=== PATIENT | female | born 1945 | race Caucasian/White ===

== ENCOUNTER 2025-01-31 13:31 | Outpatient (CLI) | payer MEDICARE, SELFPAY ==
--- NOTE | 2025-01-31 14:51 | ECG_ITS ---
Test Date: 2025-01-31 15:21:55 Measurements Intervals Buckner Rate: 69 P: 34 VA: 154 QRS: 15 QRSD: 79 T: 74 QT: 367 QTc: 393 Interpretive Statements SINUS RHYTHM LOW QRS VOLTAGE IN PRECORDIAL LEADS [QRS DEFLECTION < 1.0 mV IN CHEST LEADS] ABNORMAL ECG No previous ECG available for comparison Electronically Signed On 02-01-2025 09:55:54 CDT by Al Tao M.D.
[2025-01-31 15:34] LABS: Hematocrit 40.5 % (37.0-47.0); Hemoglobin 12.6 g/dL (12.0-15.0); Mean Corpuscular HGB Conc 31.1 g/dl (32-36); Mean Corpuscular Hemoglobin 28.8 pg (26-34); Mean Corpuscular Volume 92.7 fl (80-100); Platelet Count Result 240 k/mm3 (150-375); Red Blood Count 4.37 M/mm3 (4.2-5.4); White Blood Count 8.7 K/mm3 (4.5-10.0)
[2025-01-31 15:35] LABS: Add Urine Microscopic? NO; Appearance Urine Clear (Clear); Glucose Urine UA Negative (Negative); Leukocyte Esterase Ur Negative LEU/UL (Negative); Nitrate Urine Negative (Negative); Specific Grav Ur 1.009 (1.001-1.035)
[2025-01-31 15:43] LABS: INR 1.1; Partial Thromboplastin Time 28.5 Seconds (22.3-36.8); Prothrombin Time 13.8 Seconds (11.1-14.7)
[2025-01-31 16:13] LABS: Anion Gap 11 mmol/L (4-12); Blood Urea Nitrogen 17 mg/dL (7-17); Calcium 9.7 mg/dL (8.4-10.2); Carbon Dioxide 24 mmol/L (22-30); Chloride 106 mmol/L (98-107); Estimated Glomerular Filt Rate 39; Glucose 96 mg/dL (65-110); Potassium 4.2 mmol/L (3.4-5.0); Sodium 141 mmol/L (137-145)
== END 2025-01-31 13:32 | disposition home or self-care (01) ==
LOC: ANHSURGERY 13:37
PROVIDERS: PCP Family Medicine; Visit Provider Neurological Surgery
DX: Z01.818 Encounter for other preprocedural examination (principal); R94.31 Abnormal electrocardiogram [ECG] [EKG]; M71.30 Other bursal cyst, unspecified site; I10 Essential (primary) hypertension
CPT/HCPCS: 36415; 80048; 81003; 85027; 85610; 85730; 93005

== ENCOUNTER 2025-02-10 02:28 | Day surgery (SDC) | payer MEDICARE, SELFPAY ==
[2025-01-31 14:02] VITALS: BMI 39.8
--- NOTE | 2025-01-31 14:25 | PC.NURSE ---
Report to the Outpatient Waiting Room, entrance under the green pavilion located off [facility], at time ___6:00AM____ on date ___02/10/25____. Planned Procedure Time: ___7:30AM .? Time changes happen often and if your time is changed the preop area will call you the afternoon before. - You and your visitor will be asked to self-screen and do not enter if you have any COVID symptoms. Please call surgeon if you need to reschedule. - A mask is optional within the hospital at this time. Patients may have clear liquids (water, carbonated beverages, clear teas, apple juice) until 3 hours prior to surgery (4:30AM) with a maximum of 20 ounces. - No food from midnight until time of surgery and no smoking, or chewing tobacco (or any form of nicotine). No chewing gum, candy or mints. Take only the following medications with a SIP of water on the morning of surgery: LEVOTHYROXINE, TRELEGY ELLIPTA DO NOT STOP ANY OF YOUR OTHER PRESCRIPTION MEDICATIONS PRIOR TO SURGERY EXCEPT THE FOLLOWING Medications to discontinue per physician ____HOLD ASPIRIN 7 DAYS PRE-OP PER DR BARNHART Date to take last dose 02/02/25 Please no make-up, nail sudanese, hairspray, perfume, deodorant, or body powder the day of surgery.? No jewelry (including any body piercings) or valuables the day of surgery, leave them at home.? Please take a shower or bath the night before, or the morning of, surgery with an antibacterial soap.? Wear comfortable, loose fitting clothing.? - Jewelry must be removed prior to entering the operating room.? Rings and piercings that are not removed may be cut off. - The hospital will not accept responsibility for valuables.? - Please leave all valuables, including medications, at home the day of surgery. If you are going home after surgery, a licensed entry level truck driver must drive you home.? - NO public transportation without another adult if you receive anesthesia. - We recommend that an adult stay with you for 24 hours following discharge. - We also recommend that you do not drive, make important decision, drink alcoholic beverages, or take any drugs that were not prescribed by your health care provider for at least 24 hours after your discharge time. Follow any additional instructions given to you from your surgeon. Telephone instructions given to ____PATIENT and asked if any additional questions and then verbalized understanding. Patient advised to call surgeon office or pre surgery nurse liaison [phone] if any additional questions.
[2025-02-10] VITALS (16 sets, daily range): BP systolic 107–178; BP diastolic 50–95; PULSE 61–84; RESP 14–20; TEMP 35.8–36.8; O2SAT 94–100
--- NOTE | ~2025-02-10 | XR_ITS ---
XR fluoroscopy no charge Indication: L3-4 bilateral lumbar laminectomy TECHNIQUE: Fluoroscopy used during L3-4 bilateral lumbar laminectomy performed by [Keo camarillo MD] on 02/10/2025. 9 seconds of fluoroscopy time with 4 fluoroscopic images captured. FINDINGS: Correlate with procedure note. IMPRESSION: Fluoroscopy used during L3-4 bilateral lumbar laminectomy. Reviewed, dictated and finalized at location []
--- OUTSIDE RECORDS SUMMARY | 2025-02-10 02:31 | XMS_ITS | Referral Summary ---
Author Organization [facility] Address [address] [place] [address] Care Team Providers Care Drift Miner Name Role Phone Jovan Mcclellan MD Primary Care Provider [phone] Agustina Ramos NP Unavailable [phone] Encounters Date Type Department Care Team Description 02/07/2025 ACO Medication Access [facility] Care Organization [address] [place] [address] Mariangel Montemayor CPhT 02/06/2025 Telephone Family Physicians [facility] [address] [place] [address] Jovan Mcclellan MD Medical Question/Miscellane ous 01/31/2025 Orders Only [facility] Health Information Management [address] [place] [id number] Scanning, Provider 01/31/2025 ACO Medication Access [address] [address] Mariangel Montemayor CPhT from Last 3 Months Allergies No known active allergies Medications cetirizine (ZyrTEC) 10 mg tablet Take 1 tablet (10 mg total) by mouth daily Active aspirin 81 mg enteric coated tablet Take 1 tablet (81 mg total) by mouth daily Active famotidine (PEPCID) 40 mg tabletIndicatio ns:Laryngeal spasm Take 1 tablet (40 mg total) by mouth nightly 90 tablet 3 4 Active Trelegy Ellipta 100-62.5-25 mcg inhaler INHALE 1 PUFF BY MOUTH DAILY 60 each 11 4 Active pravastatin (PRAVACHOL) 20 mg tablet TAKE 1 TABLET(20 MG) BY MOUTH DAILY 90 tablet [address] (NexIUM) 20 mg capsule TAKE 2 CAPSULES BY MOUTH DAILY BEFORE BREAKFAST 180 capsule 3 5 Active Synthroid 88 mcg tablet TAKE 1 TABLET(88 MCG) BY MOUTH CERTIFIED PESTICIDE APPLICATOR BEFORE BREAKFAST 90 tablet 3 5 Active losartan (COZAAR) 100 mg tablet TAKE 1 TABLET(100 MG) BY MOUTH DAILY 90 tablet 3 5 Active Active Problems Problem Noted Date Diagnosed Date Spinal stenosis of lumbar re gion with neurogenic claudication 10/24/2024 Assessment & Plan (10/24/2024 1:09 PM CDT): Contihnue surveillance and will follow with gait support from ayaan lawrence and patient with sig pseudocoludication with activity. Prediabetes 10/24/2024 Assessment & Plan (10/24/2024 1:09 PM CDT): Labowkr ordered and pending. WIll folwo resniose. Flu vaccine need 04/10/2024 Annual physical exam 04/10/2024 Laryngeal spasm 10/19/2023 Assessment & Plan (10/19/2023 12:00 PM CDT): Continue esomeprazole 20 mg in the morning 30-60 minutes prior to any foods, fluid (only water) or other medication Pepcid 40 mg at bedtime Call if no improvement in 3 months Laryngopharyngeal reflux discussed and Handout provided Hypothyroidism 10/12/2023 Assessment & Plan (10/24/2024 1:08 PM CDT): Clincially euthyroid. Continue on TFTs and will montir esrponse. See attached order and iwll follow resopnse. Assessment & Plan (10/12/2023 5:02 PM CDT): Clinically euthroyyid. Continue to montior chemical status. BMI 38.0-38.9,adult 10/12/2023 Assessment & Plan (10/12/2023 5:02 PM CDT): Encoruage 150min/week aerobic exericse. Healthy food chocies. Hypertension, essential 10/12/2023 Assessment & Plan (10/24/2024 1:08 PM CDT): Reviewed use of losartan and stable at the [facility]. WIll continue to montiro rseponse. No chest pains/repssures/paltpiations. Assessment & Plan (10/12/2023 5:02 PM CDT): Stable on losartan and will montiro rseopnse. No chest pains, no active anginal s/s. Chronic obstructive pulmonary disease 10/12/2023 Assessment & Plan (10/24/2024 1:09 PM CDT): No icnreased owkr of breahing. Continue son trelegy and wilf follow resopnse. No increased COPD> Assessment & Plan (10/12/2023 5:02 PM CDT): Stable on trelegy. R eviewed immunizations and will montior rsepnose. Dysphonia 10/12/2023 Assessment & Plan (10/19/2023 12:01 PM CDT): Continue esomeprazole 20 mg in the morning 30-60 minutes prior to any foods, fluid (only water) or other medication Pepcid 40 mg at bedtime Call if no improvement in 3 months Assessment & Plan (10/12/2023 5:03 PM CDT): Reveiwed ENT recommendations given findings of voice change and will montior response. Severe obesity (BMI 35.0-39.9) with comorbidity 05/24/2021 Assessment & Plan (10/12/2023 5:01 PM CDT): Enroauge 150min/week aerobic exeicse. Healthy food choices. Influenza A 09/02/2019 Chronic obstructive pulmonar y disease with acute exacerbation 10/13/2018 Assessment & Plan (10/13/2018 3:32 AM CDT): Patient feeling better. No wheezing on exam. Will switch steroids to prednisone 40 daily. Add azithromycin. Continue with duo nebs every 6 hr. Pneumonia 10/13/2018 Assessment & Plan (10/13/2018 3:31 AM CDT): Suspected. Patient has crackles at the right base. Chest x-ray did not show any active disease. Patient is on Rocephin will add azithromycin for atypical coverage. Essential hypertension 10/13/2018 Assessment & Plan (10/13/2018 3:32 AM CDT): Holding losartan due to acute kidney injury. Will continue to monitor and if needed will treat. Obesity (BMI 30-39.9) 10/13/2018 YOVANNY (acute kidney injury) 10/13/2018 Assessment & Plan (10/13/2018 3:32 AM CDT): Likely prerenal as patient states she had not eaten anything for 4 days. Patient is receiving IV fluids. Will continue to monitor. Avoid any unnecessary nephrotoxins. GERD (gastroesophageal reflux disease) 9 Assessment & Plan (10/12/2023 5:00 PM CDT): Stable on PPI . No dysphagia. Continue on daily nexium. Assessment & Plan (10/13/2018 3:31 AM CDT): Continue PPI HLD (hyperlipidemia) 10/13/2018 Assessment & Plan (10/12/2023 5:01 PM CDT): Stable on PPI and will follow response. Continue on pravastatin and will montior response. No chagne and will follow . Assessment & Plan (10/13/2018 3:31 AM CDT): Continue statin Immunizations Immunization Administration Dates Next Due Influenza, Quad, Adjuvantate d, Intramuscular 03/23/2020 Influenza, Trivalent, High D ose, Split, Preservative Free, Intramuscular 04/06/2024,03/24/2019,04/27/2018,03/17,03/18/2016 Influenza, Trivalent, IM (MDV) 03/20/2014,2012 Influenza, Unspecified 04/12/2023,2021,05/02/2021,04/23,02/25/2015,05/13/2012 Moderna SARS-CoV-2 Monovalen t Vaccination (12+ YRS) 05/17/2021,10/02/2020,08/23/2020 Pneumococcal Conjugate PCV 13 04/25/2015 Pneumococcal Conjugate, Unspecified 05/20/2019(D eferred: Patient Refused) Social History Tobacco Use Types Packs/Day Years Used Date Smoking Tobacco: Former Cigarettes Q uit: 1988 Smokeless Tobacco: Never Tobacco Cessation:Counseling Given: Not Answered Alcohol Use Standard Drinks/Week Comments Not Currently 0 (1 standard drink = 0.6 oz pur e alcohol) PHQ-2 Answer Date Recorded PHQ-2 Total Score (If total score is 3 or more points, staff should administer the PHQ-9) 0 04/06/2024 Comments No Sex and Gender Information Value Date Recorded Sex Assigned at Not on file Legal Sex Female 6:59 PM LAUNDRY MARKER SUPERVISOR Gender Identity Not on file Sexual Orientation Not on file Last Filed Vital Signs Vital Sign Reading Time Taken Comments Blood Pressure 124/68 10/07/2024 2:05 PM CDT Pulse 73 10/07/2024 2:05 PM CDT Temperature 36.5 C (97.7 F) 10/07/2024 2:05 PM CDT Respiratory Rate 18 10/07/2024 2:05 PM CDT Oxygen Saturation 97% 10/07/2024 2:05 PM CDT room air Inhaled Oxygen Concentration - - Weight 90.7 kg (200 lb) 04/06/2024 1:52 PM CDT Height 157.5 cm (5' 2.01) 10/07/2024 2:05 PM CD T Body Mass Index 36.57 04/06/2024 1:52 PM CDT Plan of Treatment Not on file Procedures Procedure Name Priority Date/Time Associated Diagnosis Comments SCAN - LABS 01/31/2025 DEXA AXIAL SKELETON BONE DENSITY 1 OR MORE SITES Schedule Routine, Read Routine (OP Routine) 08/15/2022 1:41 PM LAUNDRY MARKER SUPERVISOR Asymptomatic menopausal state STOOL DNA COLOGUARD Routine 08/13/2022 10:43 AM LAUNDRY MARKER SUPERVISOR Colon cancer screening from Last 3 Months or Most Recently Relevant to Health Maintenance Results * SCAN - LABS (01/31/2025) us Provider Scanning Final Result * Dexa Axial Skeleton Bone Density 1 Or 2 Site (08/15/2022 1:41 PM LAUNDRY MARKER SUPERVISOR) Anatomical Region Laterality Modality Body N/A Other 08/15/2022 8:53 PM LAUNDRY MARKER SUPERVISOR Narrative 08/15/2022 8:55 PM LAUNDRY MARKER SUPERVISOR EXAM DESCRIPTION: DEXA AXIAL SKELETON BONE DENSITY 1 OR MORE SITES REASON FOR STUDY: 77 y/o year old F with given history of screening. Postmenopausal Tin Stacker/Model: [employer] SL (S/N [id number]) CLINICAL INFORMATION: Current height: 60.5 inches Maximum height: 61.5 inches Weight: 223 pounds Risk factors: Parental hip fracture, postmenopausal, chronic obstructive pulmonary disease COMPARISON: None available. FINDINGS: AP LUMBAR SPINE L1-L4: Total BMD is 0.998 g/cm2 T-score is -0.4 LEFT HIP: Total BMD is 0.813 g/cm2 T-score is -1.1 Femoral neck BMD is 0.607 g/cm2 T-score is -2.2 FRAX: 10 year risk for a major osteoporotic fracture is 24 %, 10 year risk for a hip fracture is 15 % IMPRESSION: Based on the left femoral neck bone mineral density (T-score -2.2 ) the patient has low bone mass . REFERENCE: Bone mineral density: Normal (T-score above or = -1.0) Low bone mass (T-score between -1.0 and -2.5) replaces the previously used term osteopenia Osteoporosis (T-score = or below -2.5) Medical evaluation for secondary causes of low bone mineral density may be appropriate. FRAX is a World Health Organization validated fracture risk assessment tool that calculates a person's 10 year probability of a major osteoporosis related fracture and hip fracture. According to the National Osteoporosis Foundation guidelines, postmenopausal women and men age 50 or older with low bone mass and a 10 year probability of a major osteoporosis related fracture = or greater than 20% or a 10 year probability of a hip fracture = or greater than 3% should be considered for treatment. For further information, including treatment recommendations, please refer to the 2013 ISCD Official Positions (http://www.iscd.org) and the NOF's Clinician's Guide to Prevention and Treatment of Osteoporosis (http://www.nof.org/professionals/clinical-guidelines) THIS IS AN ELECTRONICALLY VERIFIED FINAL REPORT 08/15/2022 8:55 PM - Electronically signed by Tony Arnett M.D. MF: [email or web address] Report ID: [id number] Reading Location: [place] [address] Procedure Note Tony Arnett MD - 08/15/2022 EXAM DESCRIPTION: DEXA AXIAL SKELETON BONE DENSITY 1 OR MORE SITES REASON FOR STUDY: 77 y/o year old F with given history ofscreening. Postmenopausal Tin Stacker/Model: [employer] Discovery SL (S/N [id number]) CLINICAL INFORMATION: Current height: 60.5 inches Maximum height: 61.5 inches Weight: 223 pounds Risk factors: Parental hip fracture, postmenopausal, chronic obstructive pulmonary disease COMPARISON: None available. FINDINGS: AP LUMBAR SPINE L1-L4: Total BMD is 0.998 g/cm2 T-score is -0.4 LEFT HIP: Total BMD is 0.813 g/cm2 T-score is -1.1 Femoral neck BMD is 0.607 g/cm2 T-score is -2.2 FRAX: 10 year risk for a major osteoporotic fracture is 24 %, 10 year risk for ahip fracture is 15 % IMPRESSION: Based on the left femoral neck bone mineral density (T-score -2.2 )the patient has low bone mass . REFERENCE: Bone mineral density: Normal (T-score above or = -1.0) Low bone mass (T-score between -1.0 and -2.5) replaces thepreviously used term osteopenia Osteoporosis (T-score = or below -2.5) Medical evaluation for secondary causes of low bone mineral density may be appropriate. FRAX is a World Health Organization validated fracture risk assessmenttool that calculates a person's 10 year probability of a major osteoporosisrelated fracture and hip fracture. According to the National OsteoporosisFoundation guidelines, postmenopausal women and men age 50 or older with low bonemass and a 10 year probability of a major osteoporosis related fracture = or greater than 20% or a 10 year probability of a hip fracture = or greaterthan 3% should be considered for treatment. For further information, including treatment recommendations, please referto the 2013 ISCD Official Positions (http://www.iscd.org) and the NOF's Clinician's Guide to Prevention and Treatment of Osteoporosis (http://www.nof.org/professionals/clinical-guidelines) THIS IS AN ELECTRONICALLY VERIFIED FINAL REPORT 08/15/2022 8:55 PM - Electronically signed by Tony Arnett M.D. MF: [email or web address] Report ID: [id number] Reading Location: [place] [address] Jovan Mcclellan MD IM DXA PROCEDURES Final Result * Stool DNA - Cologuard (08/13/2022 10:43 AM LAUNDRY MARKER SUPERVISOR) Stool DNA - Cologuard Negative Negative TRAN[employer]SL (CLIA #:[id number]) Comment: NEGATIVE TEST RESULT. A negative Cologuard result indicates a low likelihood that a colorectal cancer (CRC) or advanced adenoma (adenomatous polyps with more advanced pre-malignant features) is present. The chance that a person with a negative Cologuard test has a colorectal cancer is less than 1 in 1500 (negative predictive value >99.9%) or has an advanced adenoma is less than 5.3% (negative predictive value 94.7%). These data are based on a prospective cross-sectional study of 10,000 individuals at average risk for colorectal cancer who were screened with both Cologuard and colonoscopy. (Eric Rios al, N Engl J Med 2014;370(14):0314-1030) The normal value (reference range) for this assay is negative. COLOGUARD RE-SCREENING RECOMMENDATION: Periodic colorectal cancer screening is an important part of preventive healthcare for asymptomatic individuals at average risk for colorectal cancer. Following a negative Cologuard result, the [place] Cancer Society and U.S. Multi-Society Task Force screening guidelines recommend a Cologuard re-screening interval of 3 years. References: [place] [employer] Guideline for Colorectal Cancer Screening: https://www.cancer.org/cancer/prxjn-bjrzyw-cqixyi/nzbnlhtqf-efsezeiiz-wzddopl/ac s-rec ommendations.html.; Godfrey DK, Brian CR, Troy MorrisK, Colorectal Cancer Screening: Recommendations for Physicians and Patients from the U.S. Multi-Society Task Force on Colorectal Cancer Screening , Am J Gastroenterology 2017; 112:9164-9075. TEST DESCRIPTION: Composite algorithmic analysis of stool DNA-biomarkers with hemoglobin immunoassay. Quantitative values of individual biomarkers are not reportable and are not associated with individual biomarker result reference ranges. Cologuard is intended for colorectal cancer screening of adults of either sex, 45 years or older, who are at average-risk for colorectal cancer (CRC). Cologuard has been approved for use by the U.S. FDA. The performance of Cologuard was established in a cross sectional study of average-risk adults aged 50-84. Cologuard performance in patients ages 45 to 49 years was estimated by sub-group analysis of near-age groups. Colonoscopies performed for a positive result may find as the most clinically significant lesion: colorectal cancer [4.0%], advanced adenoma (including sessile serrated polyps greater than or equal to 1cm diameter) [20%] or non- advanced adenoma [31%]; or no colorectal neoplasia [45%]. These estimates are derived from a prospective cross-sectional screening study of 10,000 individuals at average risk for colorectal cancer who were screened with both Cologuard and colonoscopy. (Eric Rios al, N Engl J Med 2014;370(14):8586-6205.) Cologuard may produce a false negative or false positive result (no colorectal cancer or precancerous polyp present at colonoscopy follow up). A negative Cologuard test result does not guarantee the absence of CRC or advanced adenoma (pre-cancer). The current Cologuard screening interval is every 3 years. ([place] [employer] Society and U.S. Multi-Society Task Force). Cologuard performance data in a 10,000 patient pivotal study using colonoscopy as the reference method can be accessed at the following location: www.Agistics.Hightower/results. Additional description of the Cologuard test process, warnings and precautions can be found at www.cologuard.com. Stool 08/13/2022 10:4 3 AM LAUNDRY MARKER SUPERVISOR 08/15/2022 10:40 AM LAUNDRY MARKER SUPERVISOR us Jovan Mcclellan MD LAB BODY FLUIDS AND STOOL S ORDERABLES Final Result [employer] (CLIA #:[id number]) [address] [place] [address] from Last 3 Months or Most Recently Relevant to Health Maintenance Insurance [facility] Advance Directives For more information, please contact: [phone] * Full Code (Latest Code Status on File) Date Activated Date Inactivated Comments 08/31/2019 2:33 PM 09/09/2019 6:37 PM * Full Code Date Activated Date Inactivated Comments 10/12/2018 5:01 PM 10/16/2018 12:31 AM Care Teams Drift Miner Relationship Specialty Start Date End Date Jovan Mcclellan MD [address] [place] [address] PCP - General Family Medicine 10/18/18 Agustina Ramos, ANA [address] [place] [address] Registered Nurse Pulmonary Disease 10/13/22
--- OUTSIDE RECORDS SUMMARY | 2025-02-10 02:31 | XMS_ITS | Encounter Summary ---
Author Organization [facility] Healthcare Address [address] [place] [address] Care Team Providers Care Corporate Director Talent Assessment Name Role Phone Jovan Mcclellan MD Primary Care Provider [phone] Agustina Ramos NP Unavailable [phone] Reason for Visit * Reason Onset Date Comments Medical Question/Miscellaneous 02/06/2025 Encounter Details Date Type Department Care Team (Late st Contact Info) Description 02/06/2025 Telephone Family Physicians [address] [address] Jovan Mcclellan MD [address] [place] [address] Medical Question/Miscellaneous Social History Tobacco Use Types Packs/Day Years Used Date Smoking Tobacco: Former Cigarettes Q uit: 1989 Smokeless Tobacco: Never Alcohol Use Standard Drinks/Week Comments Not Currently 0 (1 standard drink = 0.6 oz pur e alcohol) PHQ-2 Answer Date Recorded PHQ-2 Total Score (If total score is 3 or more points, staff should administer the PHQ-9) 0 04/06/2024 Comments No Sex and Gender Information Value Date Recorded Sex Assigned at Not on file Legal Sex Female 6:59 PM COMMUNITY INTEGRATION SPECIALIST Gender Identity Not on file Sexual Orientation Not on file documented as of this encounter Miscellaneous Notes * Telephone Encounter - Farrah Manzo MA - 02/06/2025 2:29 PM CDT FYI * Telephone Encounter - Selma Sebastian - 02/06/2025 1:56 PM CDT Medical Question/Miscellaneous Caller???s Concern: Patient wanted to make Dr. Jovan Mcclellan aware that she will be having back surgery on 02/10/2025, this Thursday, at [facility] in [place], [place]. Does message need to be routed? Yes-FYI Only documented in this encounter Plan of Treatment Not on file documented as of this encounter Visit Diagnoses Not on filedocumented in this encounter Care Teams Corporate Director Talent Assessment Relationship Specialty Start Date End Date Jovan Mcclellan MD [address] [place] [address] PCP - General Family Medicine 10/18/18 Agustina Ramos, ANA [address] [place] [address] Registered Nurse Pulmonary Disease 10/13/22 documented as of this encounter
--- OUTSIDE RECORDS SUMMARY | 2025-02-10 02:31 | XMS_ITS | Clinical Summary ---
Author Organization [facility] Address [address] [place] [address] Care Team Providers Care Human Resources Mgr Name Role Phone Jovan Mcclellan MD Primary Care Provider [phone] Agustina Ramos NP Unavailable [phone] Allergies No known active allergies Medications cetirizine [...] tablet TAKE 1 TABLET(88 MCG) BY MOUTH CREDIT VERIFIER BEFORE BREAKFAST 90 tablet 3 5 Active [...] use of losartan and stable at the presne titme. WIll continue to montiro rseponse. No chest pains/repssures/paltpiations. Assessment & Plan (10/12/2023 5:02 PM CDT): Stable on losartan and will montiro rseopnse. No chest pains, no active anginal s/s. Chronic obstructive pulmonary disease 10/12/2023 Assessment & Plan (10/24/2024 1:09 PM CDT): No icnreased owkr of breahing. Continue son ezekiel and jessicaf follow resopnse. No increased COPD> Assessment & [...] Plan (10/13/2018 3:31 AM CDT): Continue statin Encounters Date Type Department Care Team Description 02/07/2025 ACO Medication Access [address] [address] Mariangel Montemayor CPhT 02/06/2025 Telephone Family Physicians [facility] [address] [place] [address] Jovan Mcclellan MD Medical Question/Miscellane ous 01/31/2025 Orders Only [facility] Health Information Management [address] [place] [id number] Scanning, Provider 01/31/2025 ACO Medication Access [address] [address] Mariangel Montemayor CPhT from Last 3 Months Immunizations Immunization Administration Dates Next Due Influenza, Quad, Adjuvantate d, Intramuscular 03/23/2020 Influenza, Trivalent, High D ose, Split, Preservative Free, Intramuscular 04/06/2024,03/24/2019,04/27/2018,03/17,03/18/2016 Influenza, Trivalent, IM (MDV) 03/20/2014,2012 Influenza, Unspecified 04/12/2023,2021,05/02/2021,04/23,02/25/2015,05/13/2012 Moderna SARS-CoV-2 Monovalen t Vaccination (12+ YRS) 05/17/2021,10/02/2020,08/23/2020 Pneumococcal Conjugate PCV 13 04/25/2015 Pneumococcal Conjugate, Unspecified 05/20/2019(D eferred: Patient Refused) Surgical History Surgery Date Site/Laterality Comments KNEE ARTHROSCOPY EXPLORATORY LAPAROTOMY COLECTOMY CHOLECYSTECTOMY Medical History Medical History Date Comments COPD (chronic obstructive pulmonary disease) (HC C) Hypertension Thyroid disease Family History Medical History Relation Name Comments Stroke Father Stroke Mother Relation Name Status Comments Father Mother Social History Tobacco Use Types Packs/Day Years [...] on file Legal Sex Female 6:59 PM VETERANS' COORDINATOR Gender Identity Not on file Sexual Orientation Not on file Obstetrics History Para Term AB IAB SAB Ectopic Multiple Livin g Live Births 0 0 0 0 0 0 0 0 0 0 0 Last Filed Vital Signs Vital Sign Reading [...] 04/06/2024 1:52 PM CDT Plan of Treatment Health Maintenance Due Date Last Done Comments DTaP/Tdap/Td Vaccine (1 - Tdap) 1956 Hepatitis B Screening 1962 Zoster Vaccine (1 of 2) 1994 Pneumococcal vaccine 65+ (2 of 2 - PPSV23) 06/20/2015 04/25/2015 Covid-19 Vaccine (4 - 2023-2 5 season) 2024 05/17/2021, 10/02/2020, 08/23/2020 Osteoporosis Screening-Bone Density Scan 08/15/2024 08/15/2022 Influenza Vaccine (#1) 2025 , 04/12/2023, 04/18/2022, Additional history exists Depression Screening 04/06/2025 04/06/2024, 01/28/2023, 07/18/2022, Additional history exists Fall Risk Assessment 04/06/2025 04/06/2024, 01/28/2023, 07/18/2022, Additional history exists Well Visit 65+ 04/06/2025 04/06/2024, 01/10, 11/25/2021, Additional history exists Colon Cancer Screening-DNA Stool 08/13/2025 08/13/19, 06/15/2019 Procedures Procedure Name Priority Date/Time Associated Diagnosis Comments SCAN - LABS 01/31/2025 DEXA AXIAL SKELETON BONE DENSITY 1 OR MORE SITES Schedule Routine, Read Routine (OP Routine) 08/15/2022 1:41 PM VETERANS' COORDINATOR Asymptomatic menopausal state STOOL DNA COLOGUARD Routine 08/13/2022 10:43 AM VETERANS' COORDINATOR Colon cancer screening from Last 3 Months or Most Recently Relevant to Health Maintenance Results * SCAN - LABS (01/31/2025) us Provider Scanning Final Result * Dexa Axial Skeleton Bone Density 1 Or 2 Site (08/15/2022 1:41 PM VETERANS' COORDINATOR) Anatomical Region Laterality Modality Body N/A Other 08/15/2022 8:53 PM VETERANS' COORDINATOR Narrative 08/15/2022 8:55 PM VETERANS' COORDINATOR EXAM DESCRIPTION: DEXA AXIAL SKELETON BONE DENSITY 1 OR MORE SITES REASON FOR STUDY: 77 y/o year old F with given history of screening. 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 MF: BELTRAN Report ID: [id number] Reading Location: [place] [address] Procedure Note Tony Arnett MD - 08/15/2022 EXAM DESCRIPTION: DEXA AXIAL SKELETON BONE DENSITY 1 OR MORE SITES REASON FOR STUDY: 77 y/o year old F with given history ofscreening. 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 MF: BELTRAN Report ID: [id number] Reading Location: [place] [address] Jovan Mcclellan MD IMG DXA PROCEDURES Final Result * Stool DNA - Cologuard (08/13/2022 10:43 AM VETERANS' COORDINATOR) Stool DNA - Cologuard Negative Negative [facility] (CLIA #:[id number]) Comment: NEGATIVE TEST RESULT. A negative Cologuard [...] screened with both Cologuard and colonoscopy. (Eric Pan et al, N Engl J Med 2014;370(14):3961-2323) The normal value (reference range) for this assay is negative. COLOGUARD RE-SCREENING RECOMMENDATION: Periodic colorectal cancer screening is an important part of preventive healthcare for asymptomatic individuals at average risk for colorectal cancer. Following a negative Cologuard result, the English Cancer Society and U.S. Multi-Society Task Force screening guidelines recommend a Cologuard re-screening interval of 3 years. References: English Cancer Society Guideline for Colorectal Cancer Screening: https://www.cancer.org/cancer/gdudm-wtoxzm-pkqoon/jdidklvgr-ltjscnota-oniyztp/ac s-rec ommendations.html.; Godfrey DK, Brian CR, Troy MorrisK, Colorectal Cancer Screening: Recommendations for Physicians and Patients from the U.S. Multi-Society Task Force on Colorectal Cancer Screening , Am J Gastroenterology 2017; 112:9440-6966. TEST DESCRIPTION: Composite algorithmic analysis of stool [...] (Eric Rios al, N Engl J Med 2014;370(14):8127-2020.) Cologuard may produce a false negative or false positive result (no colorectal cancer or precancerous polyp present at colonoscopy follow up). A negative Cologuard test result does not guarantee the absence of CRC or advanced adenoma (pre-cancer). The current Cologuard screening interval is every 3 years. (English Cancer Society and U.S. Multi-Society Task Force). Cologuard performance data in a 10,000 patient pivotal study using colonoscopy as the reference method can be accessed at the following location: www.[employer].Teamer.net/results. Additional description of the Cologuard test process, warnings and precautions can be found at www.[employer].com. Stool 08/13/2022 10:4 3 AM VETERANS' COORDINATOR 08/15/2022 10:40 AM VETERANS' COORDINATOR Jovan Mcclellan MD LAB BODY FLUIDS AND STOOL S ORDERABLES Final Result [facility] (CLIA #:[id number]) [address] [place] [address] from Last 3 Months or Most Recently Relevant to Health Maintenance Insurance MEDICARE AD[facility] MEDIC[facility] Address: [address] [place] [phone] MEDICARE ADVANTAGE [facility] MEDICARE Address: [address] [address] [place] [address] Advance Directives For more information, please contact: [phone] * Full Code (Latest Code Status on File) Date Activated Date Inactivated Comments 08/31/2019 2:33 PM 09/09/2019 6:37 PM * Full Code Date Activated Date Inactivated Comments 10/12/2018 5:01 PM 10/16/2018 12:31 AM Care Teams Human Resources Mgr Relationship Specialty Start Date End Date Jovan Mcclellan MD [address] [place] [address] PCP - General Family Medicine 10/18/18 Agustina Ramos, IT LEAD [address] [place] [address] Registered Nurse Pulmonary Disease 10/13/22
--- OUTSIDE RECORDS SUMMARY | 2025-02-10 02:31 | XMS_ITS | Clinical Summary ---
Author Organization [facility] Address [address] [place] [address] Care Team Providers Care Crocheter Hand Name Role Phone Janak Starks MD Primary Care Provider [phone] Source Comments [facility],non-owned Affiliates and Associated Physician Practices is amultiple site organization consisting of ambulatory clinics and hospital sitesin [place], [place], [place] and [place]. This disclosure is being madepursuant to the Care Everywhere program and may not contain all information available regarding this patient. Last updated 18.[facility] Allergies No known active allergies Medications * Be aware that medications may not be up to date on this document. Alwaysverify current medications with the patient. PRAVASTATIN SODIUM PO Active levothyroxine (SYNTHROID) 88 MCG tablet Take 88 mcg by mouth daily before breakfast Active LOSARTAN POTASSIUM PO Active Esomeprazole Magnesium (NEXIUM PO) Active Budesonide-Form oterol Fumarate (SYMBICORT IN) Activ e Cetirizine HCl (ZYRTEC ALLERGY PO) Active ipratropium (ATROVENT) 0.02 % nebulizer solution Inhale 0.5 mg by mouth every 6 hours Active ALBUTEROL SULFATE HFA IN Activ e Social History Tobacco Use Types Packs/Day Years Used Date Smoking Tobacco: Never Assessed Comments Unknown Sex and Gender Information Value Date Recorded Sex Assigned at Not on file Legal Sex Female 9:49 AM MIXER OPERATOR RAW SALT Gender Identity Not on file Sexual Orientation Not on file Last Filed Vital Signs Vital Sign Reading Time Taken Comments Blood Pressure 118/58 09/14/2017 11:00 AM MIXER OPERATOR RAW SALT Pulse 113 09/14/2017 11:00 AM MIXER OPERATOR RAW SALT Temperature 36.8 C (98.3 F) 09/14/2017 11:00 AM MIXER OPERATOR RAW SALT Respiratory Rate - - Oxygen Saturation 93% 09/14/2017 11:00 AM MIXER OPERATOR RAW SALT Inhaled Oxygen Concentration - - Weight 95.3 kg (210 lb) 09/14/2017 11:00 AM MIXER OPERATOR RAW SALT Height 157.5 cm (5' 2) 09/14/2017 11:00 AM MIXER OPERATOR RAW SALT Body Mass Index 38.41 09/14/2017 11:00 AM MIXER OPERATOR RAW SALT Plan of Treatment Health Maintenance Due Date Last Done Comments BONE DENSITY TESTING 1944 DTAP/TDAP/TD VACCINES (1 - Tdap) 1963 PNEUMOCOCCAL VACCINE 50+ (1 of 1 - PCV) 1994 ZOSTER VACCINE (1 of 2) 1994 Respiratory Syncytial Virus (RSV) Vaccine Pt: or over 60 yrs (1 - 1-dose 75+ series) 2019 COVID-19 VACCINE ( - 2023-2 5 season) 2024 DEPRESSION SCREENING 07/13/2024 INFLUENZA VACCINE (#1) 2025 HEPATITIS B VACCINE Aged Out No longe r eligible based on patient's age to complete this topic HIB VACCINE Aged Out No longer eligi ble based on patient's age to complete this topic HPV VACCINE Aged Out No longer eligi ble based on patient's age to complete this topic MENINGOCOCCAL (Group B) VACC INE SHARED DECISION-MAKING Aged Out No longer eligibl e based on patient's age to complete this topic MENINGOCOCCAL GROUPS A/C/Y/W VACCINE Aged Out No longer eligible b ased on patient's age to complete this topic Insurance [facility] MANAGED MEDICARE ADV Care Teams Crocheter Hand Relationship Specialty Start Date End Date Janak Starks MD [address] [place] [address] PCP - General Internal Medicine 09/14/17
[2025-02-10] MEDS: LACTATED RINGERS 1,000 ML 30 ML IV CONT ×2 (06:30→08:47)
--- NOTE | 2025-02-10 07:06 | P.HP_ITS ---
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 She failed conservative management and is now here for an L3/4 lumbar laminectomy and resection of synovial cyst. Review of Systems Review of Systems: negative other than what was listed in [facility] Past Medical History Medical History (Updated 02/09/25 @ 17:59 by Tima Cunningham DO) Graves' disease GERD (gastroesophageal reflux disease) Emphysema, unspecified Asthma Hyperlipidemia Hypertension CVA (cerebral vascular accident) Family History Family History Father Cerebrovascular accident Mother Cerebrovascular accident Social History Social History Smoking status: Never smoker Second hand tobacco smoke exposure: No Smoking end date: 07/13/98 Alcohol intake: never Substance use: never Substance use type: does not use Meds Home Medications and Allergies Home Medications ?Medication ?Instructions ?Recorded ?Confirmed ?Type aspirin 81 mg tablet,delayed 81 mg PO DAILY 01/31/25 01/31/25 History release (Adult Low Dose Aspirin) cetirizine 10 mg capsule (Zyrtec) 10 mg PO DAILY PRN allergy symptoms 01/31/25 01/31/25 History esomeprazole magnesium 20 mg 40 mg PO DAILY 01/31/25 01/31/25 History capsule,delayed release fluticasone fur. 100 mcg-umeclid 1 inh inhalation QAM 01/31/25 02/10/25 History 62.5 mcg-vilant 25 mcg inhalat.powder (Trelegy Ellipta) levothyroxine 88 mcg tablet 88 mcg PO QAM 01/31/25 02/10/25 History (Synthroid) losartan 100 mg tablet 100 mg PO QAM 01/31/25 01/31/25 History pravastatin 20 mg tablet 20 mg PO HS 01/31/25 01/31/25 History Allergies Allergy/AdvReac Type Severity Reaction Status Date / Time No Known Allergies Allergy Mild Verified 02/10/25 06:55 Vital Signs Vital Signs - 24 hr 02/10/25 06:30 Temperature 97.1 F L Pulse Rate 74 Respiratory Rate 14 Blood Pressure 131/95 H Pulse Oximetry 99 Oxygen Delivery Room Air Exam Narrative: awake alert no acute distress MAEW 11/14 including IP/Q/H/PF/DF/EHL Assessment and Plan Assessment and plan (1) Synovial cyst: Code(s): M71.30 - Other bursal cyst, unspecified site Status: Acute Plan 79 yo f with L3/4 spinal stenosis and synovial cyst here for L3/4 lumbar laminectomy and resection of synovial cyst.
--- NOTE | 2025-02-10 07:06 | WPDHPUPDATE1 ---
History and Physical Update Update Date/Time: 02/10/25 07:06 History and Physical has been reviewed, including an updated exam of the patient. There are NO changes in the patient's condition. Risks, benefits, and alternatives have been discussed and questions answered. Patient agrees to proceed with procedure.
--- NOTE | 2025-02-10 07:17 | P.PNAN_ITS ---
Anes - Initial Pre Proc Eval Procedure: Operation Date: 02/10/25 07:30 Proposed Procedures p L3-L4 Bilateral Lumbar Laminectomy for Resection of Synovial Cyst - Keo Puente MD Date/Time: 02/10/25 07:17 Surgeon: Keo Puente MD Pre Op Diagnosis: synovial cyst Patient Data Age: 79 Gender: F Height: 1.57 m Weight: 99.3 kg Last Vital Signs Temp 36.2 C L 02/10/25 06:30 Pulse 74 02/10/25 06:30 Resp 14 02/10/25 06:30 BP 131/95 H 02/10/25 06:30 Pulse Ox 99 02/10/25 06:30 O2 Del Method Room Air 02/10/25 06:30 Allergies Allergy/AdvReac Type Severity Reaction Status Date / Time No Known Allergies Allergy Mild Verified 02/10/25 06:55 Home Medications ?Medication ?Instructions ?Recorded ?Confirmed ?Type aspirin 81 mg tablet,delayed 81 mg PO DAILY 01/31/25 01/31/25 History release (Adult Low Dose Aspirin) cetirizine 10 mg capsule (Zyrtec) 10 mg PO DAILY PRN allergy symptoms 01/31/25 01/31/25 History esomeprazole magnesium 20 mg 40 mg PO DAILY 01/31/25 01/31/25 History capsule,delayed release fluticasone fur. 100 mcg-umeclid 1 inh inhalation QAM 01/31/25 02/10/25 History 62.5 mcg-vilant 25 mcg inhalat.powder (Trelegy Ellipta) levothyroxine 88 mcg tablet 88 mcg PO QAM 01/31/25 02/10/25 History (Synthroid) losartan 100 mg tablet 100 mg PO QAM 01/31/25 01/31/25 History pravastatin 20 mg tablet 20 mg PO HS 01/31/25 01/31/25 History Patient hx anesthesia problems: none Family hx anesthesia problems: none Results Review: All pre-operative results and documents have been reviewed as part of the pre- operative evaluation. [facility] Past Medical History Medical History (Updated 02/09/25 @ 17:59 by Tima Cunningham DO) Graves' disease GERD (gastroesophageal reflux disease) Emphysema, unspecified Asthma Hyperlipidemia Hypertension CVA (cerebral vascular accident) Family History Family History Father Cerebrovascular accident Mother Cerebrovascular accident Social History Social History Smoking status: Never smoker Second hand tobacco smoke exposure: No Smoking end date: 07/13/98 Alcohol intake: never Substance use: never Substance use type: does not use Anes - Eval Final PreProcedure Day of Procedure 02/10/25 07:17 Patient weight: morbidly obese Heart: regular rate and rhythm Lungs: clear to auscultation Airway: Mallampati scale class II Neurological: alert and oriented Last oral intake: >/= 8 hours ASA classification: III Emergent: no Anesthetic plan: proceed Anesthesia type and monitoring: general ETT and standard monitoring Results Review: All pre-operative results and documents have been reviewed as part of the pre- operative evaluation. Informed Consent: The patient's anesthetic plan and its attendant risks and benefits were discuss ed with the patient/family/POA. Questions were solicited and answers provided to the satisfaction of the patient/family/POA.
[2025-02-10] MEDS: ceFAZolin 2 GM in SODIUM CHLORIDE 0.9% IV 50 ML 100 ML IVPB (07:26)
[2025-02-10] MEDS: BUPIVACAINE/EPINEPHRINE 0.5% 50 ML VIAL 20 ML INFILTRATE (08:08)
--- NOTE | 2025-02-10 08:40 | P.OP_ITS ---
Procedure Note - Detailed Date of Procedure 02/10/25 Pre-op Diagnosis synovial cyst Post-op Diagnosis Same Procedure Performed L3-4 bilateral lumbar laminectomy for resection of synovial cyst Use of operating microscope for microdissection Surgeon Keo Puente MD Senior Manufacturing Engineer Paula Anesthesia General Indications Low back pain lumbar stenosis neurogenic claudication Findings Severe spinal stenosis secondary to large dorsal and lateral synovial cyst Description of Procedure Patient was brought to the operating room once all lines and intubation was completed the patient was flipped prone onto a Erich frame. All bony prominences were padded. The patient was then secured to the table. Lateral fluoroscopy was brought in to confirm the L3-4 level. The incision was then marked. The patient was then prepped and draped in the usual sterile fashion. Final time-out was performed indicating correct patient procedure and site. I then made injected local anesthetic along the incision line. I then made incision with a scalpel down to the fascia. I then used Bovie electrocautery to open up the fascia in the midline and performed a subperiosteal dissection of the muscle across the facet joints. Self-retaining retractors were placed lateral fluoroscopy was brought in to confirm the L3-4 level. Once this was confirmed I removed additional spinous process with a rongeur and used a drill to thin down the lamina of L3 as well as the dorsal aspect of L4. I immediately identify the cyst however it was difficult to identify where the cyst dura interface was. I will of the lamina until I could visualize normal dura. I then used a upgoing curette to carefully create a plane between the dura and the associated Aubrey synovial cyst. Performed this bilaterally. Once I was able to have a clear plane between the dura and the synovial cyst to use a variety of Kerrison Jurado to synovial cyst in pieces. At this point the thecal sac appeared decompressed. I took final x-ray to confirm that I spanned the L3-4 segment where the synovial cyst was. At this point I obtained hemostasis and irrigated the wound. The microscope was again removed the retractors removed and again went back obtained rigorous hemostasis. At this point there was no identifiable bleeding the wound was dry I then began to close closure in layers ending with absorbable subcutaneous stitches and Steri-Strips on the skin. The patient was then flipped supine and turned over to Anesthesia for extubation. Estimated Blood Loss 50 Complications No immediate complications Disposition PACU [facility] Billing Surgery - Charge Forward: Surgery Billing
[2025-02-10] MEDS: fentaNYL CITRATE INJ (*CRX) 100 MCG/2 ML VIAL 25 MCG IV PUSH ×8 (09:06→10:13)
[2025-02-10] MEDS: ONDANSETRON INJ 4 MG/2 ML VIAL IV PUSH (09:16)
[2025-02-10] MEDS: HYDROcodone/acetaminophen (*CRX) 10-325 MG TABLET 1 TAB PO ×2 (11:33→19:41)
[2025-02-10] MEDS: LOSARTAN POTASSIUM 100 MG TABLET PO (11:33)
[2025-02-10] MEDS: PANTOPRAZOLE 40 MG TABLET PO (11:34)
[2025-02-10] MEDS: CYCLOBENZAPRINE HCL 10 MG TABLET PO (11:34)
[2025-02-10] MEDS: PRAVASTATIN SODIUM 20 MG TABLET PO (20:22)
[2025-02-10] MEDS: DOCUSATE SODIUM 100 MG CAPSULE PO (20:22)
--- NOTE | 2025-02-10 22:44 | PC.NURSE ---
On 02/10/25, the RN-LP, Sweta Haile, provided care and completed [place] documentation on this patient. I have reviewed Sweta's documentation and agree with the findings.
[2025-02-11 01:51] VITALS: BP 139/69; PULSE 88; RESP 18; TEMP 36.8; O2SAT 98
[2025-02-11] MEDS: LEVOTHYROXINE SODIUM 88 MCG TABLET PO (05:48)
[2025-02-11 05:51] VITALS: BP 141/52; PULSE 72; RESP 18; TEMP 36.9; O2SAT 98
[2025-02-11] MEDS: FLUTICASONE/UMECLIDIN/VILANTER 100-62.5-25 MCG ELLIPTA 1 PUFF INHALATION (07:22)
[2025-02-11] MEDS: DOCUSATE SODIUM 100 MG CAPSULE PO (08:49)
[2025-02-11] MEDS: PANTOPRAZOLE 40 MG TABLET PO (08:49)
[2025-02-11] MEDS: LOSARTAN POTASSIUM 100 MG TABLET PO (08:49)
[2025-02-11] MEDS: HYDROcodone/acetaminophen (*CRX) 10-325 MG TABLET 1 TAB PO (08:49)
[2025-02-11] MEDS: CYCLOBENZAPRINE HCL 10 MG TABLET PO (08:49)
[2025-02-11 09:51] VITALS: BP 126/60; PULSE 67; RESP 20; TEMP 35.8; O2SAT 95
--- NOTE | 2025-02-11 13:18 | WPDANESPN ---
Anes - Prog Note Post-Op Date/Time: 02/11/25 13:18 Cardiovascular status: normal Respiratory status: normal Airway patency: baseline Mental status: baseline Post-Op hydration status: normal Vital Signs: Last Vital Signs Temp 96.4 F L 02/11/25 09:51 Pulse 67 02/11/25 09:51 Resp 20 02/11/25 09:51 BP 126/60 02/11/25 09:51 Pulse Ox 95 02/11/25 09:51 O2 Del Method Room Air 02/11/25 08:32 O2 Flow Rate 6 02/10/25 09:30 Pain Score (VAS): 4 I/O: Intake & Output 02/10/25 02/11/25 02/11/25 23:59 07:59 15:59 Intake Total 240 240 Balance 240 240 Post-procedural complaints: none Patient Feedback: Patient satisfied with anesthetic care.
== END 2025-02-11 14:05 | disposition home or self-care (01) ==
LOC: ANHSURGERY 08:45 → ANH3MEDSUR 11:02
PROVIDERS: PCP Family Medicine; Visit Provider Neurological Surgery
PROC: (CPT 63005; principal; 2025-02-10 07:30)
DX: M71.38 Other bursal cyst, other site (principal); M48.062 Spinal stenosis, lumbar region with neurogenic claudication; E78.5 Hyperlipidemia, unspecified; I10 Essential (primary) hypertension; E05.00 Thyrotoxicosis with diffuse goiter without thyrotoxic crisis or storm; K21.9 Gastro-esophageal reflux disease without esophagitis; J43.9 Emphysema, unspecified; J45.909 Unspecified asthma, uncomplicated; E66.01 Morbid (severe) obesity due to excess calories; Z68.41 Body mass index [BMI] 40.0-44.9, adult; Z79.82 Long term (current) use of aspirin; Z79.51 Long term (current) use of inhaled steroids; Z86.79 Personal history of other diseases of the circulatory system
CPT/HCPCS: 63267; 94640; 97161; 97165; 99199; J0690; A9270; J1100; J1200; J2003; J2371; J2405; J2704; J3010; J7120